=== PATIENT | female | born 1960 | race Caucasian/White ===

== ENCOUNTER 2019-09-03 13:54 | Emergency (ER) | payer OTHER ==
[~2019-09-03] VITALS: Ht 167.6 cm; Wt 45.0 kg
[~2019-09-03 13:54] MED LIST: ATIVAN0.5 MG PO; ATIVAN1 MG PO; BENZTROPINE ME0.5 MG PO; CELEXA 10 MG TA10 M1; COMPAZINE10 MG PO; DESIPRAMINE 2525 M1 PO; DESYREL50 MG PO; DEXILANT60 MG PO; GLYCOLAX255 GM PO; HAIR, SKIN & N1 EAC1 PO; HYDROCODON-ACE1 EAC7 PO; MYLANTA GAS MA125 MG PO; PAXIL10 MG PO; PAXIL20 MG PO; PERPHENAZINE PO; PRILOSEC 20 MG20 MG; PRILOSEC40 MG PO; VICODIN 5-5001 EACH PO; XANAX 0.5 MG0.5 MG PO; ZOFRAN4 MG PO
[2019-09-03 14:39] LABS: ABSOLUTE NEUTROPHILS 6.6 thou/uL (1.4-8.2); BASOPHILS 0.4 % (0.0-2.0); EOSINOPHILS 1.5 % (0.0-3.0); HEMATOCRIT 44.2 % (37.0-47.0); HEMOGLOBIN 14.8 gm/dL (12.0-15.0); LYMPHOCYTES 17.7 % (24.0-44.0); MCH 31.1 pg (26.0-34.0); MCHC 33.6 g/dL (28.0-37.0); MCV 92.7 fL (80.0-100.0); PLATELET COUNT 253 thou/uL (150-400); POLYS 75.4 % (36.0-66.0); RBC 4.76 mil/uL (4.20-5.00); RDW 13.4 % (10.5-14.5); WBC 8.8 thou/uL (4.0-11.0)
[2019-09-03 14:51] LABS: ANION GAP 13 mmol/L (7-16); BUN 15 mg/dL (7-18); CALCIUM 9.5 mg/dL (8.5-10.1); CHLORIDE 102 mmol/L (98-107); CO2 24 mmol/L (21-32); GLUCOSE 128 mg/dL (74-106); SODIUM 139 mmol/L (136-145)
[2019-09-03 14:57] LABS: ALBUMIN 4.1 g/dL (3.4-5.0); SGOT 16 U/L (15-37); SGPT 17 U/L (30-65); TOTAL BILIRUBIN 0.7 mg/dL (0.2-1.0)
[2019-09-03 15:04] LABS: SALICYLATE < 2.8 mg/dL (2.8-20.0)
[2019-09-03 15:25] LABS: URINE BILIRUBIN NEGATIVE (Negative); URINE BLOOD NEGATIVE (Negative); URINE CLARITY CLEAR; URINE COLOR YELLOW; URINE GLUCOSE-RANDOM* NEGATIVE (Negative); URINE KETONES TRACE (Negative); URINE LEUKOCYTES-REFLEX NEGATIVE (Negative); URINE NITRITE-REFLEX NEGATIVE (Negative); URINE PROTEIN (DIPSTICK) NEGATIVE (Negative); URINE UROBILINOGEN 0.2 E.U./dl (0.2-1.0)
[2019-09-03 15:29] LABS: AMP/METHAMP Negative (Negative); BARBITURATES Negative (Negative); BENZODIAZEPINES Negative (Negative); COCAINE Negative (Negative); METHADONE Negative (Negative); OPIATES POSITIVE (Negative); PCP Negative (Negative)
[2019-09-03] MEDS ORDERED: BACLOFEN 10MG T10 MG PO (16:14)
[2019-09-03] MEDS ORDERED: INGREZZA40 MG PO (16:15)
[2019-09-03] MEDS ORDERED: OLANZAPINE5 MG PO (16:16)
[2019-09-03] MEDS ORDERED: OMEPRAZOLE 20 M20 M1 PO (16:16)
[2019-09-03] MEDS ORDERED: PAXIL20 MG PO (16:18)
[2019-09-03] MEDS ORDERED: MELATONIN3 M1 PO (16:19)
[2019-09-03] MEDS ORDERED: ONDANSETRON HCL4 M2 PO (16:20)
[2019-09-03] MEDS ORDERED: LORAZEPAM 1 MG T1 MG PO (16:21)
[2019-09-03 17:00] VITALS: BP 114/64
--- NOTE | 2019-09-04 07:49 | EKG ---
[facility] [place] [address] ELECTROCARDIOGRAM REPORT Name: RADHA CUNHA Room #: DEP [facility]#: [id number] Admission: 09/03/19 Attend Phys: Discharge: 09/03/19 Date of : 60 Report #: [id number] THIS REPORT FOR: cc: LYNN CHOWDHURY MD Physician not on staff Lex Tucker MD [facility] THIS REPORT FOR: //name// [facility] ED Test Date: 2019-09-03 Test Time: 15:02:50 Pat Name: RADHA CUNHA Department: Room: Gender: F Upper Doubler: [facility] : 1960 Requested By: Veronica Mirza Order Number: [id number] MD: Lex Tucker Measurements Intervals [place] Rate: 82 P: 96 ND: 150 QRS: 53 QRSD: 77 T: 78 QT: 377 QTc: 441 Interpretive Statements Sinus rhythm No significant abnormality No previous ECG available for comparison Electronically Signed On 09-04-2019 7:49:51 CDT by Lex Tucker [email or web address] <ELECTRONICALLY SIGNED> By: Lex Tucker MD, [facility] 09/04/19 0749 1502 150 Lex Tucker MD, [facility] /EPI
--- NOTE | 2019-09-05 00:20 | HC ---
[facility] [place] [address] CONSULTATION Name: RADHA CUNHA Room #: DEP [facility]#: [id number] Admission: 09/03/19 Attend Phys: Discharge: 09/03/19 Date of : 60 Report #: [id number] THIS REPORT FOR: cc: LYNN CHOWDHURY MD Physician not on staff Jamil Cowan DO ~ CC: Veronica Mirza Physician staff LYNN CHOWDHURY DATE OF SERVICE: 09/03/2019 This patient was seen emergently in ER room 7 at [facility], requested by Dr. Crow Francis and Veronica Frey. CHIEF COMPLAINT: "Talking about suicide." SOURCES OF INFORMATION: ER notes and interview with the patient. HISTORY OF PRESENT ILLNESS: This is a 59-year-old female who is residing at the [facility] since March of this year. The patient stated, "please let me go. I am sorry." She was in restraints when brought in by EMS. She states she wants to move back in with her parents when [facility] closes. However, her DPOA and I believe she is actually under a public hospice administrator guardianship, said no to this request and "hang up on her." She decided to threaten to kill herself in response to us to get attention. She admits to this in the ER. She denies refusing medication except for last night when she took a pain med instead of her regular meds. Per EMS, the patient has called 911 several times and hung up. Additionally, the patient called her DPOA 18 times today and left messages stating she was going to kill herself. The patient has been combative and agitated. PAST MEDICAL HISTORY: Includes acid reflux, asthma, constipation, renal insufficiency, dehydration, hepatic transaminitis. PAST SURGICAL HISTORY: Right knee surgery. PSYCHIATRIC HISTORY: Includes diagnosis of major depression, bipolar depression, obsessive-compulsive disorder. Interestingly, her notes which are very brief from [facility] states schizoaffective disorder. CURRENT MEDICATIONS: MiraLax 17 grams p.o. daily, multivitamin p.o. daily, simethicone p.r.n., hydrocodone and acetaminophen 5/325 p.o. 4 times a day p.r.n. pain, paroxetine 10 mg p.o. daily, alprazolam 0.5 mg p.o. daily, Cogentin 1 tablet p.o. daily and perphenazine 4 mg p.o. at bedtime. I think she is actually on olanzapine and to clarify that, the medication list [address] [address] CONSULTATION Name: RADHA CUNHA Room #: DEP [facility]#: [id number] Admission: 09/03/19 Attend Phys: Discharge: 09/03/19 Date of : 60 Report #: [id number] from [facility] shows tramadol, acetaminophen, Anbesol, Cheratussin, ibuprofen, loperamide, melatonin, ondansetron, baclofen, Cogentin, Haldol Decanoate 15 mg every 3 weeks for schizoaffective disorder, Ingrezza 40 mg p.o. daily, lorazepam 1 tablet oral twice daily, multivitamin, olanzapine 5 mg at bedtime, omeprazole 40 mg p.o. daily, paroxetine 10 mg oral daily. Says the skilled embedded case manager is David Weiner. I will give them a call and see if they answer. REVIEW OF SYSTEMS: The patient denied pain, nausea, vomiting, fever or diarrhea. On brief 10-point review of systems, she did report twitching of her legs at night. She did report abnormal involuntary movements of her body. She has been diagnosed with tardive dyskinesia. PHYSICAL EXAMINATION: VITAL SIGNS: Today, pulse ox 97, BP 112/70, temperature 36.5, respirations 20. Pulse was initially 131, but it has come down nicely. Weight 45.05 kg and BMI 16. Physical exam was grossly normal. EKG showed QTc of 441. Pulse was down to 82. No ST-T wave changes noted. LABORATORY DATA: Sodium 139, potassium 4.0, chloride 102, bicarbonate 24, anion gap 13, BUN 15, creatinine 1.0, estimated GFR 57, glucose 128, calcium 9.5, total bilirubin 0.7, AST 16, ALT 17, alkaline phosphatase 83, total protein 7.0, albumin 4.1. White blood cell count 8.8, H and H 14.8 and 44.2, platelet count 253. UDS is positive for opiates. Urinalysis is grossly negative. She received 5 mg Haldol, Ativan 2 mg in the ER. MENTAL STATUS EXAMINATION: This is a well-developed, thin female appearing her stated age. Attention fair. Concentration fair. Speech is normal, rate, rhythm, tone. Thought process: Linear and goal directed. Thought content: Focused on returning to halfway, getting better placement given [facility] is soon closing. No psychomotor agitation. No psychomotor retardation. Denied SI or HI. Denied auditory, visual or tactile hallucinations. Memory not formally tested. Insight limited. Judgment fair to limited. Fund of knowledge below average. FORMULATION: This 59-year-old female brought in for a suicidal threat and acute agitation. This sounds like an adjustment disorder scenario where psychiatric hospitalization would not be helpful. DIAGNOSES: At this time, schizoaffective disorder by history and adjustment disorder with disturbance of mood and conduct, improved. The patient has several morbidities including tardive dyskinesia. [facility] [address] [place] [address] CONSULTATION Name: RADHA CUNHA Room #: DEP [facility]#: [id number] Admission: 09/03/19 Attend Phys: Discharge: 09/03/19 Date of : 60 Report #: [id number] PLAN: At this time, the patient is no longer suicidal, is future oriented and she is oriented to person, place and situation, grossly to time. I do not think psychiatric hospitalization is beneficial, but timely followup with her guardian, conferences with her current care facility. This is quite trying times with COVID epidemic and the facility closing. I will extend my recommendations to the ER providers here, but I will decline her admission to [facility]. Time spent on interview, review of records, coordination of care is at least 45 minutes. I will give the Public Adminastartor a call- got voice mail and I left message about patients case and no current reason to admit her to Inpatient Geriatric Psychiatry. <ELECTRONICALLY SIGNED> By: Jamil Cowan, 09/05/19 0020 1641 35 Jamil Cowan, DO /nt
== END 2019-09-03 20:45 | disposition home or self-care (01) ==
LOC: ER 13:54
PROVIDERS: Physician Assistant
DX: R45.1 Restlessness and agitation (principal); F91.1 Conduct disorder, childhood-onset type; R41.82 Altered mental status, unspecified; F20.9 Schizophrenia, unspecified; K21.9 Gastro-esophageal reflux disease without esophagitis; J45.909 Unspecified asthma, uncomplicated; F31.9 Bipolar disorder, unspecified; F41.9 Anxiety disorder, unspecified; Z79.899 Other long term (current) drug therapy; Z88.8 Allergy status to other drugs, medicaments and biological substances; Z88.2 Allergy status to sulfonamides

== ENCOUNTER 2021-03-28 00:09 | Emergency (ER) | payer OTHER ==
[~2021-03-28 00:09] MED LIST changes: +BACLOFEN 10MG T10 MG PO; +INGREZZA40 MG PO; +LORAZEPAM 1 MG T1 MG PO; +MELATONIN3 M1 PO; +OLANZAPINE5 MG PO; +OMEPRAZOLE 20 M20 M1 PO; +ONDANSETRON HCL4 M2 PO
[2021-03-28 03:05] VITALS: BP 112/54
== END 2021-03-28 03:07 ==
LOC: ER 00:09
PROVIDERS: Emergency Medicine
DX: R45.1 Restlessness and agitation (principal); Z20.822 Contact with and (suspected) exposure to COVID-19; J45.909 Unspecified asthma, uncomplicated; F41.9 Anxiety disorder, unspecified; F31.9 Bipolar disorder, unspecified; Z98.890 Other specified postprocedural states; Z79.899 Other long term (current) drug therapy; Z88.2 Allergy status to sulfonamides; Z88.6 Allergy status to analgesic agent

== ENCOUNTER 2021-03-28 00:11 | Inpatient (IN) | payer OTHER ==
[~2021-03-28] VITALS: Ht 154.9 cm; Wt 41.9 kg
[2021-03-28 04:12] VITALS: BP 93/48
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
--- NOTE | 2021-03-28 08:51 | NUR ---
SOMULENT THIS AM-APPROACHED WITH BREAKFAST AND AM MEDS IN ROOM AT APPROX 0830-DID WAKEN TO VERBAL STIMULI AFTER 1-2 ATTEMPTS-IRRITABLE WITH NURSE"JUST LEAVE ME ALONE I WANT TO SLEEP AND MY BACK HURTS" REFUSED OFFERS OF TYLENOL FOR BACK PAIN REQUESTED AND RECEIVED NORCO . DID TAKE 1 25 MG TAB OF SCHEDULED 0900 THORAZINE BEFORE STATING "THATS ENOUGH" ROLLED OVER AND PULLED COVERS OVER HEAD RETURNING TO SLEEP.
[2021-03-28 09:11] VITALS: BP 105/62
[2021-03-28 11:45] LABS: ANION GAP 9 mmol/L (7-16); BUN 16 mg/dL (7-18); CALCIUM 8.6 mg/dL (8.5-10.1); CHLORIDE 104 mmol/L (98-107); CHOLESTEROL 174 mg/dL (<200); CO2 28 mmol/L (21-32); CREATININE 0.6 mg/dL (0.6-1.0); GLUCOSE 76 mg/dL (74-106); HDL CHOLESTEROL 66 mg/dL (>40); LDL CHOLESTEROL 93 mg/dL (<100); SODIUM 141 mmol/L (136-145); TC:HDL 2.6 Ratio (Not establshd); TRIGLYCERIDE 77 mg/dL (<150); VLDL 15 mg/dL (<40)
--- NOTE | 2021-03-28 15:43 | NUR ---
HEARD LOUD BANG IN ROOM AT APPROX 1300 AND WHEN STAFF ARRIVED IN ROOM HAD KNOCKED OVER BEDSIDE TABLE-WHEN STAFF ARRIVED IN ROOM STARTED THROWING HER SHAMPOO BOTTLE,MOISTERIZER ETC AT NURSING STAFF. STANDING IN MIDDLE OF ROOM WEARIN NO PANTS AND BEGAN TO YELL LOUDLY AT THIS NURSE"YOU TOOK MY PAPERS,BRING ME MY GLASSES" SPEECH LOUD AND VERY PRESSURED DIFFICULT TO FOLLOW /UNDERSTAND. STATES SHE WOULD TAKE PO MEDS IF STAFF HELPED HER IN GETTING PERSONEL BELONGINGS BUT WHEN APPROACHED WITH SCHEDULED 1500 PHYLLIS REFUSES STATING "I DON'T GET THAT" ATIVAN 1.5MG GIVEN IM PRN FOR AGITATION. DID STATE TO NURSE DURING CONVERSATION THAT SHE WAS BEING GIVEN THE WRONG MEDICATIONS AT ASSISTED LIVING FACILITY-"I JUST NEED LEXAPRO" I SHOULD NOT BE TAKING ALL OF THAT SEDATING STUFF"
--- NOTE | 2021-03-28 16:34 | NUR ---
FRANSISCO and Dr. Cowan attempted to meet with patient early in day. Patient was sleeping and would not wake up. FRANSISCO and Dr. Cowan returned later in the sat. Dr. Cowan reviewed reason why patient was hospitalized. Patient denied running in traffic and stated, "there was no traffic". Dr. Cowan and FRANSISCO asked patient multiple times to come to the office and talk. Patient did not move out of the bed. Patient reported that she wanted to contact her guardian. FRANSISCO stated she could call from the office but the patient refused to move.
[2021-03-28 18:30] VITALS: BP 98/64
--- NOTE | 2021-03-28 22:27 | NUR ---
Assumed care on 03/28/21 @ 1900, in bed very drowsy, respirations even and unlabored, eyes closed. When awakened for medication administration, woke up but continued ot be drowsy, asked repeatedly x4 what the meds offered were, p.o. meds offered twice, and refused. Chloropromazine 37.5 IM provided in the L gluteal, tolerated well. Patient settled into bed and she returned to sleep. Bed in low position, bed alarm set, will continue to monitor for comfort and safety.
[2021-03-29 07:09] LABS: GLYCOHEMOGLOBIN (HGB A1C) 5.4 % (4.8-5.6)
[2021-03-29 09:21] VITALS: BP 96/61
--- NOTE | 2021-03-29 11:10 | NUR ---
B12 level 429, borderline low side, recommend start supplementation
--- NOTE | 2021-03-29 11:12 | NUR ---
THIS NURSE CALLED [facility], SPOKE WITH STAFF (GLADIS) RELAED TO RISPERDAL CONSTA. GLADIS STATES THAT RESPERDAL CONSTA IS NOT ON PATIENT'S PROFILE, HE ALSO STATES THAT HE IS NOT ABLE TO VERIFY THAT BECAUSE HE IS NOT ABLE TO VIEW ALL PATIENT'S MEDICATION LIST. GLADIS STATES THAT (MIKEY)-DON MIGHT BE ABLE TO VIEW ALL PATIENT'S MEDICATION, AND SHE WILL NOT BE IN THE FACILITY TODAY. GLADIS STATES WE SHOULD CALL BACK TOMORROW AND TALK TO THE DON SHE WILL BE IN TOMORROW AT 0900HRS. DR. SALAS NOTIFIED.
--- NOTE | 2021-03-29 15:52 | NUR ---
SW met with patient in her room. Patient expressed needing to talk to public human resources benefits administrator, Jacob Lam. SW expressed that she would attempt to make contact.
--- NOTE | 2021-03-29 16:37 | NUR ---
Patient making threat of "ending it all" while in room. Will not leave door to room open. Unable to contract for safety. All linens removed from room and provided black sleeping type bag for comfort.
--- NOTE | 2021-03-29 23:22 | NUR ---
ASSUMED CARE ON 03/29/21 @ 1900, IN BED SLEEPING, WILL OFFER MEDS AGAIN LATER. REQUESTED NORCO FOR PAIN AND THEN REFUSED IT WHEN PRESENTED WITH MEDICATION. REQUESTED MEDICATION FOR STOMACH PAIN AND THEN WHEN OFFERED MALOX REFUSED IT, SAYING GO GET ME PRILOSEC. PATIENT EDUCATED THAT THE ONLY MEDICINE THAT CAN BE GIVEN IS WHAT THE DOCTOR HAS ORDERED, AND THAT SHE CAN DISCUSS WITH HIM DAILY IN DOCTORS VISIT ANY MEDICATION CHANGES THAT SHE WANTS MADE.
[2021-03-30 09:30] VITALS: BP 92/64
[2021-03-30 09:32] VITALS: BP 121/91
--- NOTE | 2021-03-30 10:55 | NUR ---
PT ASSESSED AT START OF SHIFT. CALM AT THE TIME BUT NOT WANTING TO EAT HER BREAKFAST, DID DRINK ENSURE. REFUSED TO TAKE PO THORAZINE STATING IT'S MAKING HER TOO TIRED. BP 92/64 P78 SITTING, STANDING 121/91 P92. THORAZINE GIVEN IM AND PT CALMED FOR FEW MINUTES BUT BECAME MORE AGITATED YELLING AND SLAMMING DOORS, BANGING ON WINDOWS. DR. BLACK PRESENT AND ORDERED PT TO SECLUSION ROOM W/ 1:1 OBSERVATION. PT CONTINUES TO BE AGITATED PULLING MATTRESS ONTO FLOOR AND BANGING ON THE DOOR.
--- NOTE | 2021-03-30 11:01 | NUR ---
HEART SURGEON TO SIT 1:1 WHILE PATIENT IS IN SECULSION; PATIENT NOTED BANGING ON WINDOW AT NURSES STATION, UNABLE TO REDIRECT AND CALM PATIENT AFTER MULTIPLE ATTEMPTS; IN NURSES STATION AT THIS TIME; AND 1:1 IN SECULSION WAS ORDERED @1050; PATIENT WAS TAKEN INTO QUIET ROOM; PATIENT STATED "I CAN KILL MYSELF IN HERE TOO, JUST WATCH." WILL CONTINUE TO MONITIOR.
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
[2021-03-30 19:21] VITALS: BP 87/54
[2021-03-30 19:38] VITALS: BP 95/53
--- NOTE | 2021-03-30 23:19 | NUR ---
At onset of retail shift supervisor pt was resting in bed awake. This shift pt was alert and oriented x4. Pt spent the evening in her room in bed. Pt refused her depakote, thorazine and cogentin. Pt stated thorazine does not work for her. Pt state she has tried depakote in the past, but she has trouble reaching a therapeutic level so she does not take it. Pt stated that the doctor did not come speak to her before starting her on these medications. Pt's blood presure at beginning of shift, while sitting was 95/53 with pulse of 82. Pt was encouraged to drink fluids and drank approx 12 ounces of juice and ate an ice cream. Pt denied SI, HI and AVH. Pt asked RN if she could return back to her custodial; RN told pt she would need to ask the doctor and protective services social worker this question. Pt was mostly calm and pleasant with commercial real estate underwriter. Appearance is unkempt and hair is unwashed. Pt appears depressed. Speech was soft. Pt made poor eye contact. Fall precautions in place. Will continue to monitor.
[2021-03-31 10:27] VITALS: BP 93/69
[2021-03-31 10:51] VITALS: BP 93/69
[2021-03-31 10:54] LABS: HEMATOCRIT 37.9 % (37.0-47.0); HEMOGLOBIN 12.4 gm/dL (12.0-15.0); MCH 30.4 pg (26.0-34.0); MCHC 32.8 g/dL (28.0-37.0); MCV 92.8 fL (80.0-100.0); RBC 4.08 mil/uL (4.20-5.00); RDW 13.8 % (10.5-14.5); WBC 7.2 thou/uL (4.0-11.0)
[2021-03-31 11:36] LABS: CALCIUM 8.8 mg/dL (8.5-10.1); CREATININE 0.7 mg/dL (0.6-1.0); MAGNESIUM 2.1 mg/dL (1.8-2.4); POTASSIUM 3.9 mmol/L (3.5-5.1)
--- NOTE | 2021-03-31 14:05 | NUR ---
Pt angry shaking storage room door. When asked what was the matter she stated she wanted to go home, wanted to speak to her guardian, didn't know why she was here. Spoke to her for approximately 15 min. States she was anxious and rated it a 8/10. Requesting Ativan. Dr. Cowan here, spoke with pt. 0.5 mg Ativan given PO per order. Pt resting in bed. Remains angry that she is not being discharged.
--- NOTE | 2021-03-31 14:45 | NUR ---
PAGED @5594; PATIENT COMPLAINT OF ABDOMINAL PAIN; PATIENT STATES SHE HAS NOT BEEN ABLE TO HAVE A BOWEL MOVEMENT IN "AWHILE" THEN STATES "ITS BEEN LIKE A WEEK." SMOKE ROOM OPERATOR NOTED THIS MORNING PATIENT HAD A XSMALL BOWELMOVEMENT; FORMED IN TOILET; PATIENT STATED IT WAS VERY DIFFICULT TO PASS; PATIENT @1415 PULLED SMOKE ROOM OPERATOR AND STATED SHE IS HAVING INCREASED ABDOMINAL PAIN, AND THAT SHE HAS URGE TO USE BATHROOM BUT CANT GO; TO ORDER KUB 1 VIEW @8724
--- NOTE | 2021-03-31 15:14 | NUR ---
Phone call to Sara Mcdowell (office - [phone], cell - [phone] and fax - [phone]), liaison for [facility] regarding patient. Facility is familiar with patient and would consider placement. Requested referral.
[2021-03-31 19:46] VITALS: BP 95/50
--- NOTE | 2021-04-01 02:03 | NUR ---
PATIENT DID NOT COME OUT OF HER ROOM ONCE DURING THIS SHIFT. SHE DID APPEAR TO BE SLEEPING DURING MAJORITY OF ROUNDING. SHE HAS NOT HAD A BM THIS SHIFT EVEN AFTER RECEIVING BOTTLE OF MAG CITRATE DURING THE AM SHIFT. SHE WAS AAOX2. DID NOT SPEAK MUCH WHEN ASKED QUESTIONS DURING HER MED PASS. SHE DID TAKE MEDICATIONS WITHOUT ISSUE THIS EVENING.
[2021-04-01 09:18] VITALS: BP 85/51
--- NOTE | 2021-04-01 11:00 | NUR ---
PATIENT ISLATIVE TO ROOM AT CHANGE OF SHIFT. APPROACHED AND REFUSED BREAKFAST STATED FELT WEAK. BLOOD PRESSUER WAS 85/51 WITH PUSLE OF 84 WHEN TAKEN AT 0730. PATIENT DENIES ANY S/I OR H/I WHEN QUESTIONED. STATED HAD GOOD NIGHT SLEEP - CLAIMS BP NORMALLY RUNS LOW. DID NOT ATTEND GROUP STATED FELT WEAK AND DIZZY AND HAD CHILLS. REMAINED IN ROOM. DOCTOR JESSE AND LAWRENCE RECOMMENDED IV FLUIDS TO HELP WITH DYHYDRATION BUT REFUSED WHEN APPROACHED TO START IV. CLAIMS DOES NOT DO IV AND RESISTIVE - INFORMED BOTH DR. MOLINA WELL DR. BRAVO. PATIENT HAS BEEN AMBULATING - ATTENDED GROUP WITH SUPERVISOR ACCOUNTING CLERKS - PATIENT VITALS RETAKEN AND WAS 88/51 WITH PULSE OF 60 AT 0945. WILL CONTINUE TO ENCOURAGE COMPLIANCY WITH MEALS AND PARTICIPATION IN GROUPS AND MONITOR FOR SAFETY.
--- NOTE | 2021-04-02 02:30 | NUR ---
At onset of shiftman pt was laying in bed asleep. Pt has no sheets on bed and is using the weighted blanket. This shift pt was sleeping but arousable. Pt was alert when woken up. Pt was oriented x3. Pt was partially compliant with medication. Pt took her depakote, and only took 2 of the 4 senna ordered. Pt refused the cogentin; cogentin was later discontinued by Dr. Cowan. Pt stated everyone here is mean to her. Pt stated she wants to go home. Pt denied SI, HI and AVH. Pt did drink approx 10 ounces of apple juice for evening snack; refused food. Affect is flat and pt is very unkempt. Hair is unwashed. Pt is low fall risk. Will continue to monitor.
[2021-04-02 05:34] LABS: HEMATOCRIT 36.5 % (37.0-47.0); HEMOGLOBIN 12.3 gm/dL (12.0-15.0); MCH 31.2 pg (26.0-34.0); MCHC 33.6 g/dL (28.0-37.0); MCV 92.7 fL (80.0-100.0); RBC 3.93 mil/uL (4.20-5.00); RDW 13.5 % (10.5-14.5); WBC 4.9 thou/uL (4.0-11.0)
[2021-04-02 05:50] LABS: CALCIUM 8.5 mg/dL (8.5-10.1); CREATININE 0.7 mg/dL (0.6-1.0); POTASSIUM 4.6 mmol/L (3.5-5.1)
[2021-04-02 09:13] VITALS: BP 98/48
[2021-04-02 10:04] VITALS: BP 98/48
--- NOTE | 2021-04-02 14:32 | NUR ---
Updates faxed to facility
--- NOTE | 2021-04-02 16:33 | NUR ---
PT ALERT AND ORIENTED TIMES FOUR WITH SAD FLAT AFFECT. PT HAS BEEN ISOLATIVE THIS SHIFT, WITH LITTLE INTERACTION WITH STAFF NO INTEACTIONS WITH PEERS. BP SOFT BUT STABLE. PT C/O PAIN PRN PAIN MEDICATIONS GIVEN WITH GOOD RELEIF. PT TOLERATES MEDS BUT HAS EATEN VERY SMALL PORTIONS OF MEALS. PT UP AB BLANCA WITH STEADY GAIT. WILL CONTINUE TO MONITOR.
--- NOTE | 2021-04-03 05:40 | NUR ---
patient aox4 makes needs known. patient had a flat affect, poor eye contact, fair grooming and hygiene. patient refused hs meds except protonix. patient c/o nausea zofran given per dr. order. patient encouraged fluids. patient isolative this shift.patient goal is to be with family.patient on phone restriction. patient in bed asleep at this time breathing regular and unlaboured.
[2021-04-03 08:07] VITALS: BP 101/43
[2021-04-03 08:58] VITALS: BP 101/43
--- NOTE | 2021-04-03 15:13 | NUR ---
Assumed pt care this morning from overnight shift. Pt presented irritable and hostile during this time, and was resistant to cares. Pt refused to leave room when prompted, and refused to allow CONTINUOUS PROCESS TANNER ROTARY DRUM to do vitals. Pt argued with CONTINUOUS PROCESS TANNER ROTARY DRUM staff during this time, stating, " I'm not leaving this damn room until I see my social studies teacher." It was explained to pt that social work would come in later, and that she was not discharging during this shift, as pt was under impression of this despite redirection. Nurse attempted vitals twice, and each time, pt pulled off blood pressure cuff, and yelled at this staff. Pt scratched staff next time vitals were attempted after respite period, and stated "I don't have to do anything- I'm leaving today and the social studies teacher said I am- I want to call my family but you all won't let me." Pt currently is under impression that her father is alive, and thinks that she is living in her childhood home. Unable to reorient pt to current reality, although pt is aware that she is currently in hospital. Pt approached again to do vitals, and was reoriented enough to allow staff to do vitals without further agitation. Pt continued to be ambivalent about taking medication and about leaving room despite being on room lockout. Pt would ask for med, then insult staff, stating that she didn't want that medication, and that she "didn't have to do anything- I have free will." Pt was assured that she had the right to refuse medications, but that she needed to clarify which medications she wanted and which she didn't as she was stating that staff didn't have them when staff indeed had these medications on cart and ready to give to pt. Pt would state that she would take medication, then state that she didn't have water. When encouraged to get water, pt would state that she would, but then wouldn't, and state that staff hadn't offered her the medication. When offered water, pt would refuse medication still, even if she did not have to leave room to get it. Pt was told that she had option of taking her medications now, or later, but that staff could not have medications out at her volition.
--- NOTE | 2021-04-03 16:55 | NUR ---
SW had several contacts with patient. Patient expressed wanting to talk to family. SW explained that it was group and that the patient would have to wait until after group. Patient stated she would return to [facility]. SW told the patient they would talk later. Patient was in person during lunch. Patient reportedly refused lunch. Patient wanted to talk to family and leave. SWs encouraged patient to eat lunch. Patient did not sit down to eat. During SW group, Patient asked SW where she was going. SW explained to patient that it is was group and encouraged patient to participate. Patient continued to ask where she was going. SW explained that it was time for group and that she could participate or not. Patient left the area but eventually returned to the room. Although present, patient did not participate. Patient later knocked on the SW's office door several times. Several staff attempted to redirect the patient.
--- NOTE | 2021-04-04 05:24 | NUR ---
AT BEGINNING OF SHIFT, PT REFUSED TO ALLOW WEBSPHERE COMMERCE DEVELOPER TO TAKE HER VITAL SIGNS. HOWEVER, UPON INITIAL ASSESSMENT FROM NURSE, PT WAS COOPERATIVE WITH NURSING CARES; SHE TOOK ALL HER BEDTIME MEDICATIONS AND ALLOWED HER VITAL SIGNS TO BE TAKEN. SHE C/O NECK PAIN AND NAUSEA. PRN PAIN AND NAUSEA MEDICATIONS GIVEN. PT HAS BEEN SLEEPING IN BED SINCE AROUND 2100 LAST EVENING. RESPIRATIONS EVEN AND UNLABORED. NO NEW COMPLAINTS THIS SHIFT. WILL CONTINUE TO MONITOR FURTHER.
[2021-04-04 09:58] VITALS: BP 120/71
--- NOTE | 2021-04-04 13:14 | NUR ---
PATIENT BECAME DESTRUCTIVE TO UNIT PROPERTY AROUND [facility] 1245; PATIENT HAD ASKED STEEL UNLOADER TO GO LAY DAY IN HER ROOM; PATIENT HAD REFUSED TO EAT HER LUNCH; PATIENT HAS ACTIVE ORDERS FROM MD BRAVO TO BE ON ROOM LOOKOUT DURING THE DAY; PATIENT WAS UPSET AND MAD WITH STEEL UNLOADER; STEEL UNLOADER ASKED PATIENT IF SHE WOULD LIKE TO SIT IN THE DINNING AREA IN ONE OF THE RECLINERS WITH A BLANKET; PATIENT REFUSED AND STATES " NO, I WANT IN MY ROOM." "EITHER LET ME IN MY ROOM, OR SEND ME HOME." STEEL UNLOADER INFORMED PATIENT SHE WAS BEING LOOKED AT FOR DISCHARGE TOMORROW PER MD BRAVO AND FRANSISCO MIRELES; PATIENT ASKED WERE SHE WAS GOING; ONCE PATIENT WAS INFORMED THAT SHE WOULD BE DISCHARGED TO [facility]; PATIENT BACAME IRRITABLE; AND DESTRUCTIVE TO THE DOOR IN THE HALLWAY; PATIENT THEN STATES "GET ME OUT OF HERE " "IF YOU DONT, YOU'LL HAVE TO GIVE ME SHOT." " I'M GOING TO JUST START SLAMMING STUFF AND THROWING STUFF." STEEL UNLOADER INFORMED MD BRAVO; DAMAGE WAS DONE TO THE DOOR BY PATIENT AND MARTINA WAS CALLED TO FIX DAMAGES; PATIENT WAS SPOKEN TO BY MD BRAVO; AND INFORMED PATIENT CAN NOT BEHAVE IN THIS MANNOR; AMD THAT THIS BEHAVIOR IS UNACCTABLE; PATIENT IS NOW SEATED IN A CHAIR IN THE HALLWAY; ALTHOUGH CONTINUES TO APPROCH NURSES STATION, ASKING TO CALL HER [place]; WILL CONTINUE TO MONITIOR PER [facility] PROTOCOL;
--- NOTE | 2021-04-04 13:38 | NUR ---
Primary nursing care done by Zoraida Cohn LPN. Pt refusing to come out of room for lunch. States, "Just give me a shot!" Upset that she is unable to visit family or talk with physician or talk with guardian. Did finally comply with coming out to lunch with verbal assist of 2 staff. After talking with Aleyda she began slamming door in middle of unit. Calmed down and sitting in hallway but still resistant to returning to day room. Refusing assessment. Repeating above concerns. Spoke with Dr. Cowan and SW. Remains sitting in hallway without s/o distress.
--- NOTE | 2021-04-04 15:20 | NUR ---
Email sent to Sara Mcdowell and Mary Mcdowell regarding acceptance of patient into [facility]. SW received an email back from Mary Mcdowell stating she would get back with me to let me know if the patient is accepted.
[2021-04-04 19:18] VITALS: BP 111/60
[2021-04-04 20:40] VITALS: BP 111/60
--- NOTE | 2021-04-04 21:42 | NUR ---
RESUMMED CARE FROM DAY SHIFT THIS EVENING, PATIENT IN ROOM LYING QUIET. PATIENT ALERT ORIENTED TIME 2-3 SHE HAS ANXIETY AND DEPRESSION WHICH SHE RATES A 10. PATIENT IS WORRIED ABOUT HER PLACEMENT AND FEELS PEOPLE ARE CONSTANTLY MOVING HER FROM PLACE TO PLACE. PATIENT DENIES SI/HI/AH/VH AT PRESENT PATIENTS ABDOMEN SOFT BOWEL SOUNDS PRESENT. PATIENTS LUNGS CLEAR PATIENT TOOK HER MEDICATION WITHOUT INCIDENCE. PATIENT SEVERAL TIMES CLOSES HER DOOR DESPITE STAFF; EXPLAINING TO PATIENT THAT WE HAVE TO LAY EYES ON HER FOR ROUNDS AND SAFETY. DR BRAVO INCREASED HER DEPAKOTE TO 1250 MG WILL CONTINUE TO MONITOR PATIENT FOR SAFETY AND BEHAVIORS.
--- NOTE | 2021-04-05 06:35 | NUR ---
PT HAVE BEEN RESTING WELL WITHOUT ANY ACUTE DISTRESS.C/O PAIN TO BACK THAT WAS CONTROLLED WITH TYLENOL.PT WANTING TO KNOW WHEN SHE IS GETTING DISCHARGED.UPDATED ON POC.NO SIGNIFICANT BEHAVIOURS NOTED THIS SHIFT.
[2021-04-05] MEDS ORDERED: DIVALPROEX SOD250 M1 PO (08:44)
[2021-04-05] MEDS ORDERED: LEXAPRO5 MG PO (08:45)
[2021-04-05] MEDS ORDERED: PROTONIX40 M4 PO (08:47)
--- NOTE | 2021-04-05 09:16 | NUR ---
PATIENT CHOOSE NOT TO TAKE ALL MEDICATION THIS MORNING. SHE WAS VERY IRRITABLE REGARDING DISCHARGE. PATIENT CHOOSE NOT TO EAT BREAKFAST DESPITE ENCOURAGEMENT FROM MULTIPLE STAFF. PATIENT REFUSED TO RESPOND TO ALL ASSESSMENT QUESTIONS. PATIENT IS DISCHARGED BACK TO [facility] TODAY, REPORT CALLED TO THE DON (NEIDA). [facility] PICKED-UP PATIENT, PATIENT ESCORTED TO THE [facility] BY STAFF, SHE LEFT THE UNIT AT 0900HRS. ALL PATIENT'S PERSONAL BELONGINGS GIVEN TO HER.
--- NOTE | 2021-04-05 09:22 | NUR ---
Faxed discharge summary to [facility]
--- NOTE | 2021-04-06 13:32 | D ---
[facility] [place] [address] DISCHARGE SUMMARY Name: RADHA CUNHA Room #: 520B-B DIS IN M.R.#: [id number] Admission: 03/28/21 Attend Phys: Jamil Cowan DO Discharge: 04/05/21 Date of : 60 Report #: [id number] THIS REPORT FOR: cc: Virgilio Monteiro MD, Dennis R MD Kerstein,Jamil Chavez DO ~ DATE OF SERVICE: 04/05/2021 INPATIENT PSYCHIATRIC DISCHARGE SUMMARY ATTENDING PSYCHIATRIST: Jamil Cowan DO LEATHER SPRAYER: Cliff Patel MD DISCHARGE DIAGNOSIS: Schizoaffective disorder, depressed type, modest improvement. ADDITIONAL DIAGNOSES: Heme-positive stool, history of gastritis versus peptic ulcer disease. EGD and colonoscopy has been recommended since last summer. ADDITIONAL MEDICAL PROBLEMS: Include severe constipation, chronic hypertension, asymptomatic. History of chronic pain, questionable history of DVT, history of prior CVA, history of chronic transaminitis. It should be noted the patient is a colmenares of the [facility] Public [employer] Gre[employer]. The patient is discharged to [facility] for long-term care. Ensure Enline twice a day for supplement, regular diet, requires 24/7 supervision. DISCHARGE MEDICATIONS: Depakote sodium ER 1250 mg at bedtime, for impulse control and mood stabilization, Lexapro 5 mg oral daily for depression, pantoprazole 40 mg oral twice daily for GERD. NOTABLE LABORATORY DATA: Last CBC on 04/02, white count 4.9, H and H 12.3 and 36.5, platelet count 234. Chemistry: BNP was within normal limits. Calcium 8.5, magnesium 2.0, B12 of 429, TSH 1.014. Toxicology: Depakote level on 04/04 was 49, recommend followup Depakote level in 4-5 days. COVID-19 PCR negative on the 4th, 6th, 9th from the time of admission. MICROBIOLOGY: note done except occult blood being positive. KUB x-ray done on 03/31 showed large amount of stool seen throughout the colon, which could indicate constipation. REASON FOR ADMISSION: On 03/28, a 61-[place] [address] DISCHARGE SUMMARY Name: RADHA CUNHA Room #: 520B-B [facility].#: [id number] Admission: 03/28/21 Attend Phys: Jamil Cowan DO Discharge: 04/05/21 Date of : 60 Report #: [id number]. The patient had been disruptive at her nursing facility, trying to elope, throwing a chair, attempting to burst out a door. The patient was admitted to Geriatric Psychiatry Unit. In general, the patient was oppositional, defiant, wanting to talk to her guardian. The PA returned case inspector did not want to speak with her in general. We did organize one call with her. The patient at times was banging on doors, windows. She did damage a door on the unit. She served a couple of times in seclusion, but this was all behavioral, trying to be discharged. She kept being focused on going to her home and her family. Little insight that she is under [place] Guardianship. We elected to discharge as she was not violent to others and we were not making forward progress. PHYSICAL EXAMINATION: VITAL SIGNS: Temperature 36.3, pulse 59, respirations 18, BP 111/60, O2 sat 99%. MUSCULOSKELETAL: Thin, frail appearing, BMI 17.5, weight 41.929 kilos. MENTAL STATUS EXAMINATION: A well-developed, ill-appearing female. Attention and concentration fair and limited respectively. Speech tended towards monotone. Denied SI, HI. some hopelessness, helplessness with housing out of her control Denied auditory or visual type hallucinations. Mood was "bad", congruent, constricted. Memory not formally tested. Insight and judgment limited. Fund of knowledge, no greater than average. PROGNOSIS: Guarded given her failure to be able to form a therapeutic alliance. <ELECTRONICALLY SIGNED> By: Jamil Cowan DO 04/06/21 1332 1447 1823 Jamil Cowan DO /nt
== END 2021-04-05 10:54 | DRG 885 ==
LOC: SBH
PROVIDERS: Hospitalist; Internal Medicine; ADMIT Psychiatry & Neurology Psychiatry; ATTEND Psychiatry & Neurology Psychiatry
DX: F25.1 Schizoaffective disorder, depressive type (principal); K59.00 Constipation, unspecified; Z20.822 Contact with and (suspected) exposure to COVID-19; G47.00 Insomnia, unspecified; G89.29 Other chronic pain; M54.9 Dorsalgia, unspecified; K21.9 Gastro-esophageal reflux disease without esophagitis; Z88.2 Allergy status to sulfonamides; Z88.8 Allergy status to other drugs, medicaments and biological substances; Z86.73 Personal history of transient ischemic attack (TIA), and cerebral infarction without residual deficits
CPT/HCPCS: 10880